=== PATIENT | male | born 2000 | race Caucasian/White ===

== ENCOUNTER 2019-05-19 21:17 | Emergency (ER) | payer SELFPAY ==
[2019-05-19 21:34] VITALS: BP 137/71
--- NOTE | 2019-05-19 21:59 | UC ---
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 injury - History of Current Complaint Chief Complaint: [employer] Time Seen by Provider: 05/19/19 21:32 Stated Complaint: RIGHT HEEL COMPLAINT Hx Obtained From: Patient Onset/Duration: Gradual Onset, Lasting Days Timing: Constant Onset Severity: Mild Current Severity: Mild Pain Intensity: 2 Pain Scale Used: 0-10 Numeric Location: Diffuse Character: Redness Aggravating Factor(s): Touch Alleviating Factor(s): Nothing Associated Signs & Symptoms: Positive: Rash - Allergy/Home Medications Allergies/Adverse Reactions: Allergies Allergy/AdvReac Type Severity Reaction Status Date / Time No Known Allergies Allergy Verified 05/19/19 21:27 Home Medications: Home Medications NK [No Home Medications Reported] 05/19/19 [History Confirmed 05/19/19] PMH/Surg Hx/FS Hx/Imm Hx Previously Healthy: Yes - Surgical History Surgical History: None - Family History Known Family History: Positive: Hypertension, Non-Contributory - Social History Alcohol Use: Occasionally Substance Use Type: None Smoking Status (MU): Light Every Day Tobacco Smoker Type: Cigarettes Amount Used/How Often: 1/2 PPD Length of Time of Smoking/Using Tobacco: on/off 3 years Review of Systems All Other Systems Reviewed And Are Negative: Yes Constitutional: Positive: Negative Skin: Positive: Rash Eyes: Positive: Negative ENT: Positive: Negative Respiratory: Positive: Negative Cardiovascular: Positive: Negative Gastrointestinal: Positive: Negative Genitourinary: Positive: Negative Motor: Positive: Negative Neurovascular: Positive: Negative Musculoskeletal: Positive: Negative Neurological: Positive: Negative Psychological: Positive: Negative Physical Exam Triage Information Reviewed: Yes Appearance: Well-Appearing, No Pain Distress, Well-Nourished Vital Signs: Initial Vital Signs Temp 98.7 F 05/19/19 21:28 Pulse 106 05/19/19 21:28 Resp 16 05/19/19 21:28 BP 137/71 05/19/19 21:28 Pulse Ox 100 05/19/19 21:28 Eye Exam: Normal Eyes: Positive: Conjunctiva Clear ENT: Positive: Hearing grossly normal. Negative: Nasal congestion, Nasal drainage, Trismus, Muffled voice, Hoarse voice Dental Exam: Normal Neck: Positive: Supple, Nontender Respiratory: Positive: Lungs clear, Normal breath sounds, No respiratory distress Cardiovascular: Positive: RRR, No Murmur Musculoskeletal: Positive: ROM Intact, No Edema Neurological: Positive: Alert Psychological Exam: Normal Skin Exam: Other - see image Images Feet (Multiple View): 1 - black irregular rash with appearance of purpura Course/Dx - Diagnoses Provider Diagnosis: Felipa noir Discharge ED - Sign-Out/Discharge Documenting (check all that apply): Patient Departure All imaging exams completed and their final reports reviewed: No Studies - Discharge Plan Condition: Stable Disposition: HOME Referrals: Helen Miles [Medical Doctor] - 2 Weeks (ask for a [place] appt) Additional Instructions: Felipa noir is an discoloration of skin that results from intraepidermal hemorrhage caused by shear-force injuries. Felipa noir translated from [place] means black heel (also known as calcaneal petechiae). It most aptly describes lesions upon the feet, particularly the heel. Dx FELIPA NOIR better socks and boots may help if not resolving please follow up with information security specialist - Billing Disposition and Condition Condition: STABLE Disposition: Home
== END 2019-05-19 22:09 | disposition home or self-care (01) ==
LOC: UCCORT 21:17
DX: S90.32XA Contusion of left foot, initial encounter (principal); F17.210 Nicotine dependence, cigarettes, uncomplicated; X58.XXXA Exposure to other specified factors, initial encounter; Y92.9 Unspecified place or not applicable; Y99.0 Civilian activity done for income or pay
CPT/HCPCS: 99201; G0463